=== PATIENT | male | born 1965 | race Caucasian/White ===

== ENCOUNTER 2019-08-11 14:02 | Emergency (ER) | payer OTHER ==
[~2019-08-11] VITALS: Ht 188 cm; Wt 109.8 kg
[2019-08-11] MEDS ORDERED: FENOFIBRATE145 MG PO (14:16)
[2019-08-11] MEDS ORDERED: LOVAZA1 GM PO (14:16)
[2019-08-11] MEDS ORDERED: ROSUVASTATIN CAL5 MG PO (14:17)
== END 2019-08-11 16:33 | disposition home or self-care (01) ==
LOC: ED 14:02
DX: R73.9 Hyperglycemia, unspecified (principal); Z79.899 Other long term (current) drug therapy
CPT/HCPCS: 80053; 81001; 85025; 96360; 99284-25; J7030

== ENCOUNTER 2020-07-05 22:13 | Inpatient (IN) | payer OTHER ==
[~2020-07-05] VITALS: Ht 188 cm; Wt 104.9 kg
[~2020-07-05 22:13] MED LIST: FENOFIBRATE145 MG PO; LOVAZA1 GM PO; ROSUVASTATIN CAL5 MG PO
[2020-07-05] MEDS ORDERED: VARDENAFIL HCL10 M1 PO (22:33)
[2020-07-05] MEDS ORDERED: METFORMIN HCL500 M1 PO (22:33)
[2020-07-06] MEDS ORDERED: ROSUVASTATIN CA10 MG PO (08:37)
[2020-07-06] MEDS ORDERED: VITAMIN D350 MC3 PO (18:01)
[2020-07-06] MEDS ORDERED: ADULT ASPIRIN R81 MG PO (18:01)
[2020-07-10] MEDS ORDERED: KEFLEX500 MG PO (09:29)
[2020-07-10] MEDS ORDERED: DEXAMETHASONE4 MG PO (09:32)
== END 2020-07-10 10:20 | disposition home or self-care (01) | DRG 177 ==
LOC: ED 22:13 → CCU 22:16
PROVIDERS: ADMIT Internal Medicine; ATTEND Internal Medicine
PROC: XW033E5 Introduction of Remdesivir Anti-infective into Peripheral Vein, Percutaneous Approach, New Technology Group 5 (ICD-10-PCS; principal; 2020-07-06)
PROC: XW033E5 Introduction of Remdesivir Anti-infective into Peripheral Vein, Percutaneous Approach, New Technology Group 5 (ICD-10-PCS; 2020-07-07)
PROC: XW033E5 Introduction of Remdesivir Anti-infective into Peripheral Vein, Percutaneous Approach, New Technology Group 5 (ICD-10-PCS; 2020-07-08)
PROC: XW033E5 Introduction of Remdesivir Anti-infective into Peripheral Vein, Percutaneous Approach, New Technology Group 5 (ICD-10-PCS; 2020-07-09)
PROC: XW033E5 Introduction of Remdesivir Anti-infective into Peripheral Vein, Percutaneous Approach, New Technology Group 5 (ICD-10-PCS; 2020-07-10)
DX: U07.1 COVID-19 (principal); J12.89 Other viral pneumonia; R78.81 Bacteremia; B96.89 Other specified bacterial agents as the cause of diseases classified elsewhere; E78.5 Hyperlipidemia, unspecified; E11.9 Type 2 diabetes mellitus without complications; Z79.899 Other long term (current) drug therapy; Z79.84 Long term (current) use of oral hypoglycemic drugs
CPT/HCPCS: 71045; 80053; 81001; 82803; 83605; 85025; 85610; 85730; 87040; 87077; 87184; 87186; 94667; 94668; 96374; 99285-25; G0378; J0696; J1100; J1650; J1815; J7030; J7050; J7121; J8540

== ENCOUNTER 2022-03-16 08:12 | Day surgery (SDC) | payer OTHER ==
[~2022-03-16] VITALS: Ht 188 cm; Wt 105.0 kg
[~2022-03-16 08:12] MED LIST changes: +ADULT ASPIRIN R81 MG PO; +DEXAMETHASONE4 MG PO; +GLIPIZIDE ER5 MG PO; +KEFLEX500 MG PO; +METFORMIN HCL500 M1 PO; +NIACIN50 MG PO; +ROSUVASTATIN CA10 MG PO; +TRICOR48 MG NG; +VARDENAFIL HCL10 M1 PO; +VIAGRA100 MG PO; +VITAMIN D350 MC3 PO; +ZITHROMAX250 MG PO
[2022-03-16] MEDS ORDERED: LISINOPRIL-HCT1 EACH PO (08:33)
[2022-03-16] MEDS ORDERED: RYBELSUS3 MG PO (08:34)
--- NOTE | 2022-03-16 11:53 | NUR ---
03/16/22 1153 Ruthy Mckeon 1144 PATIENT ARRIVES TO PACU SLEEPING. AWAKENS WITH VERBAL STIMULI. RESP EVEN AND UNLABORED, NC AT 2 LITERS. PATIENT HAS FREQUENT PERIODS OF APNEA AND NEEDS FREQUENT REMINDERS TO DEEP BREATHE. PATIENT DOES FOLLOW COMMANDS. PATIENT DENIES PAIN OR NAUSEA. PATIENT SLEEPING WHEN NOT STIMULATED.
--- NOTE | 2022-03-17 06:28 | OR ---
[facility] [address] [place], [place] [address] Signed DATE OF OPERATION: 03/16/2022 SURGEON: Lynsey Selby MD PREOPERATIVE DIAGNOSIS: Screening. POSTOPERATIVE DIAGNOSES: 1. A 5 mm polyp at 32 cm. 2. A 3 mm polyp at distal right colon. 3. A 5 mm polyp at 42 cm. 4. Minimal internal hemorrhoids. 5. Indurated prostate. PROCEDURE: Colonoscopy with hot biopsy. ESTIMATED BLOOD LOSS: None. INDICATIONS: Addison is a 56-year-old diabetic gentleman, asked to see me for his initial screening colonoscopy. He has no lower GI complaints. He said with the metformin, he does get some diarrhea. No family history of colon cancer or polyps. I have helped his with her rectal cancer, consequently Addison and his were very familiar with colonoscopy and our bowel prep. He had developed COVID back in 2020 and spend about a week in our hospital. He now gets dyspnea on exertion. He said he can walk 3 or 5 miles on the treadmill, but he has to push the lawnmower, it really takes the energy out of him. He actually spent time with [facility]. He had a negative stress test about a month ago. We could see had a bundle branch block today on his rhythm strip, but he had that on the previous rhythm strip from several years ago. He also had pulmonary function testing to his knowledge, it was fine. His thinks he might have sleep apnea, but he has never been tested. He also told me there was a 3 cm nodule on his thyroid, for which he is following along with his senior pastor and awaiting a biopsy. However, the thyroid nodule does not affect his breathing or swallowing. In the office, I gave him a pamphlet on colonoscopy. He understands that as well. There is risk including, but not limited to gas bloating, crampy abdominal pain, bleeding, perforation requiring surgery, and missed diagnosis. We also reviewed the need for IV conscious sedation. He had expressed understanding and wished to proceed. Electronically Signed By: LYNSEY SELBY MD 03/17/22 0628 PATIENT NAME: ADDISON ROWE OPERATIVE REPORT DATE OF : 65 REPORT #: [id number] PHYSICIAN: LYNSEY SELBY MD PCP: LETITIA JOSEPH PA-C REPORT IS CONFIDENTIAL AND NOT TO BE RELEASED WITHOUT AUTHORIZATION [facility] [address] [place] [address] Signed DESCRIPTION OF PROCEDURE: Addison was taken into our endoscopy suite and placed in the left lateral decubitus position. He was given IV sedation with 6 mg of Versed and 150 mcg of fentanyl with the help of our nurse. He was awake several times during the procedure, but seemed to be comfortable overall. A digital rectal exam was performed and he has good sphincter tone. His prostate is a bit indurated and enlarged. The scope was inserted and advanced under direct visualization up to the cecum itself. His prep was quite good. We could easily see the appendiceal orifice and ileocecal valve. The scope was then slowly withdrawn. We took several pictures throughout for photodocumentation. The three polyps mentioned above were easily removed with the help of hot biopsy forceps. There was no diverticulosis. The rectum was unremarkable. Upon retroflexion of scope, we could see minimal internal hemorrhoid tissue. After this, the gas was suctioned out and the colonoscope removed. Overall, Addison tolerated the procedure quite well. RECOMMENDATIONS: I will see Addison back in my office in 7 to 14 days to review his results. Lynsey Selby MD ALB/MODL /[id number] cc: Patient Chart MD Letitia Loera PA-C Copies: LYNSEY SELBY MD, CHLOE K PA-C ~ Electronically Signed By: LYNSEY SELBY MD 03/17/22 0628 PATIENT NAME: ADDISON ROWE OPERATIVE REPORT DATE OF : 65 REPORT #: [id number] PHYSICIAN: LYNSEY SELBY MD PCP: LETITIA JOSEPH PA-C REPORT IS CONFIDENTIAL AND NOT TO BE RELEASED WITHOUT AUTHORIZATION
--- NOTE | 2022-03-21 18:59 | PATH ---
[facility] [address] [place], [place] [address] Signed SPECIMEN(S): A POLYP AT 32 CM SPECIMEN(S): B DISTAL RIGHT COLON POLYP SPECIMEN(S): C POLYP AT 42 CM SPECIMEN SOURCE: A. POLYP AT 32 CM B. DISTAL RIGHT COLON POLYP C. POLYP AT 42 CM CLINICAL HISTORY: Screening colonoscopy, no family history of colon cancer. FINAL PATHOLOGIC DIAGNOSIS: A. Colon, 32 cm, polypectomy: - Multiple fragments of tubular adenoma. - There is no evidence of high-grade dysplasia or malignancy. B. Colon, distal right, polypectomy: - Hyperplastic polyp. - There is no evidence of dysplasia or malignancy. C. Colon, 42 cm, polypectomy: - Tubular adenoma. - There is no evidence of high-grade dysplasia or malignancy. TWK:caw:C2NR MICROSCOPIC EXAMINATION: Histologic sections of all submitted blocks are examined by light microscopy. These findings, together with the gross examination, support the pathologic diagnosis. GROSS DESCRIPTION: Three specimens are received in three containers, labeled "GM." A. The specimen, labeled "GM, polyp at 32 cm," is received in formalin and consists of two schroeder soft tissue fragments that measure 0.3 cm in greatest dimension. The specimen is entirely submitted in cassette (A1). B. The specimen, labeled "GM, distal right colon polyp," is received in formalin and consists of one schroeder soft tissue fragment that measures 0.3 cm in greatest dimension. The specimen is entirely submitted in cassette (B1). C. The specimen, labeled "GM, polyp at 42 cm," is received in formalin and consists of one schroeder soft tissue fragment that measures 0.3 cm in greatest PATIENT NAME: LEANDER ROWE PATHOLOGY DATE OF : 65 REPORT #: [id number] PHYSICIAN: ARABELLA CUMMINGS PCP: KEITH JOSEPH PA-C REPORT IS CONFIDENTIAL AND NOT TO BE RELEASED WITHOUT AUTHORIZATION [facility] [address] [place], [place] [address] Signed dimension. The specimen is entirely submitted in cassette (C1). AT (under the direct supervision of a pathologist) The Gross Description was prepared using a voice recognition system. The report was reviewed for accuracy; however, sound-alike word errors, addition and/or deletions may occur. If there is any question about this report, please contact Client Services. PERFORMING LABORATORY: The technical component was performed by [facility] [address] [place] [address] (CLIA# [id number]). The professional interpretation [facility] by [facility], [facility], [facility] [address] [place] [id number] (CLIA#: [id number]). Diagnostician: Jose Luis Goode MD Pathologist Electronically Signed 03/21/2022 Copies: ~ PATIENT NAME: ROWE,LEANDER AMADOR PATHOLOGY DATE OF : 65 REPORT #: [id number] PHYSICIAN: ARABELLA CUMMINGS PCP: KEITH JOSEPH PA-C REPORT IS CONFIDENTIAL AND NOT TO BE RELEASED WITHOUT AUTHORIZATION
== END 2022-03-16 13:00 | disposition home or self-care (01) ==
LOC: OPS 08:12 → DS 08:14 → OPS 09:45
PROVIDERS: ATTEND Colon & Rectal Surgery
PROC: 0DBE8ZX Excision of Large Intestine, Via Natural or Artificial Opening Endoscopic, Diagnostic (ICD-10-PCS; 2022-03-16)
PROC: 0DBF8ZX Excision of Right Large Intestine, Via Natural or Artificial Opening Endoscopic, Diagnostic (ICD-10-PCS; principal; 2022-03-16 09:45)
DX: Z12.11 Encounter for screening for malignant neoplasm of colon (principal); D12.6 Benign neoplasm of colon, unspecified; E11.9 Type 2 diabetes mellitus without complications; K64.8 Other hemorrhoids; N42.89 Other specified disorders of prostate; Z86.16 Personal history of COVID-19
CPT/HCPCS: 99153; G0500; J2250; J3010; J7121

== ENCOUNTER 2022-04-20 08:30 | Observation (INO) | payer OTHER ==
[~2022-04-20] VITALS: Ht 182.9 cm; Wt 103.6 kg
[~2022-04-20 08:30] MED LIST changes: +LISINOPRIL-HCT1 EACH PO; +RYBELSUS3 MG PO
[2022-04-21] MEDS ORDERED: ACETAMINOPHEN500 MG PO (11:05)
--- NOTE | 2022-04-23 11:38 | OR ---
[facility] [address] [place], [place] [address] Signed DATE OF OPERATION: 04/20/2022 SURGEON: Iesha Melo MD PREOPERATIVE DIAGNOSIS: Left 3.7 cm thyroid mass, [facility] category 4. POSTOPERATIVE DIAGNOSIS: Follicular lesion. No evidence of capsular invasion. Final pathology pending. PROCEDURE: Left total thyroid lobectomy with isthmusectomy. ANESTHESIA: General endotracheal (Nae Pittman CRNA, and Iesha Phillip CRNA) INDICATIONS: This 56-year-old man is a patient of LetitiaNARAYAN Ford and referred with an ultrasound-guided biopsy performed in [place] of a 3.7 cm thyroid mass, considered [facility] category 4. He is referred for consideration of thyroid lobectomy, possible total thyroidectomy. He underwent the ultrasound-guided fine-needle aspiration biopsy in [place] on March 13, [address] Duran and evaluated by [facility], suspicious for follicular neoplasm, considered [facility] category 4. The patient has no associated symptoms or dysphagia, trouble breathing, and no family history of thyroid cancer or known exposure to radiation or radiation therapy. He is admitted at this time to undergo left thyroid lobectomy, possible total thyroidectomy depending on frozen pathology. The risks of bleeding, infection, need for return to the OR for completion thyroidectomy in the future pending final pathology. IN addition, the risks of bleeding,infection, recurrent or external laryngeal nerve injury, unintended parathyroid excision were all reviewed and understood by the patient and his . FINDINGS: The thyroid mass was very soft and not highly suspicious. Complete left thyroid lobectomy was undertaken without known complication. The recurrent laryngeal nerve was identified after excision and clearly was unharmed. PROCEDURE IN DETAIL: The patient was brought to the operating room and given a general endotracheal anesthetic. A shoulder roll was placed and mild neck extension secured. He had two dominant Electronically Signed By: IESHA MELO MD 04/23/22 1138 PATIENT NAME: LEANDER ROWE OPERATIVE REPORT DATE OF : 65 REPORT #: [id number] PHYSICIAN: IESHA MELO MD PCP: LETITIA LYNCH PA-C REPORT IS CONFIDENTIAL AND NOT TO BE RELEASED WITHOUT AUTHORIZATION [facility] [address] [place], [place] [address] Signed creases of his neck considered optimal for incision . Arms were placed at the side. A susan lounge position was maintained. The neck was then prepared with a chlorhexidine solution and draped sterilely. A natural skin crease was used for incision. Incision extended between the medial heads of the sternocleidomastoid muscle. Transection of the dermis was undertaken. Electrocautery used for hemostasis. The platysmal layer was divided with electrocautery and superior and inferior thyroid flaps elevated. Two Gelpi retractors were placed and the midline avascular plane identified; elevation of the strap muscles (sternohyoid) was undertaken. Using electrocautery, the midline avascular plane was incised superiorly and inferiorly. The sternohyoid and sternothyroid muscles were freed with sharp dissection from over the left thyroid lobe. The left thyroid mass itself was posteriorly located. Access initially was not straight forward particularly. Loose areolar tissue to the lateral aspect was divided with sharp and electrocuatery dissection as needed. The mass itself was very posterior in the thyroid. Superior polar vessels were individually ligated with 4-0 silk ties and divided. Similar dissection was undertaken inferiorly. Small vessels in the midportion were similarly isolated and divided and secured with 4-0 silk ties. Small clips were applied in each region as necessary. With progressive mobilization, the left thyroid lobe was rotated towards the midline. The posterior capsular elements were identified and the capsule incised with electrocautery and bluntly . The posterior elements including parathyroid glands were left in situ of course. Ultimately with sequential blunt dissection minimal electrocautery was able to be applied to the ligament of Yancey to transect the thyroid tissue near the anterior aspect of the trachea. The avascular plane was encountered allowing for complete rotation of the thyroid lobe and isthmus to the right. Hemostats were applied to the isthmus at the junction of the right thyroid lobe. The parenchyma divided. Those remnant elements of the isthmus were secured with 3-0 silk suture. Irrigation was undertaken. The recurrent laryngeal nerve was identified posterior to the area of parenchymal transection and well out of harm's way. Aerosolized fibrin glue (Tisseel) was applied to the ligament of Yancey and surrounding soft tissue, though there was not much bleeding to begin with. By this point, the thyroid lobe was returned from the pathologist examination showing a "follicular lesion" without sign of capsular invasion. Given this soft substance of the mass, I think it is highly unlikely there was any malignancy. Once hemostasis was assured the midline strap muscles were reapproximated with interrupted 2-0 Vicryl as was the platysmal layer. The skin was then closed in running subcuticular of 4-0 Vicryl. Steri-Strips were applied Electronically Signed By: IESHA MELO MD 04/23/22 1138 PATIENT NAME: LEANDER ROWE OPERATIVE REPORT DATE OF : 65 REPORT #: [id number] PHYSICIAN: IESHA MELO MD PCP: LETITIA LYNCH PA-C REPORT IS CONFIDENTIAL AND NOT TO BE RELEASED WITHOUT AUTHORIZATION [address] [place] [address] Signed as was an Acticoat dressing. The patient was ultimately extubated and transferred to recovery room in good condition having suffered no known complications. Sponge, needle, and counts were reported as correct x3. Blood loss was less than 10 mL in aggregate. MD SHADE Forrest/RADHIKA /[id number] cc: Dr. Roger Lynch PA-C Copies: ~ Electronically Signed By: IESHA MELO MD 04/23/22 1138 PATIENT NAME: LEANDER ROWE OPERATIVE REPORT DATE OF : 65 REPORT #: [id number] PHYSICIAN: IESHA MELO MD PCP: LETITIA LYNCH PA-C REPORT IS CONFIDENTIAL AND NOT TO BE RELEASED WITHOUT AUTHORIZATION
--- NOTE | 2022-04-26 18:29 | PATH ---
[facility] [address] [place], [place] [address] Signed SPECIMEN(S): A LEFT THYROID LOBE WITH ISTHMUS SPECIMEN SOURCE: A. LEFT THYROID LOBE WITH ISTHMUS CLINICAL HISTORY: Left thyroid mass. FROZEN SECTION DIAGNOSIS: A. Left thyroid lobe with isthmus:Follicular lesion, deferred to permanents. (Dr. Montenegro, 1352 hours, 04-20-22) FB (under the direct supervision of a pathologist) The Gross Description was prepared using a voice recognition system. The report was reviewed for accuracy; however, sound-alike word errors, addition and/or deletions may occur. If there is any question about this report, please contact Client Services. FINAL PATHOLOGIC DIAGNOSIS: Thyroid lobe, left, lobectomy plus isthmus: - Follicular adenoma. TWK:sjc:C2NR MICROSCOPIC EXAMINATION: Histologic sections of all submitted blocks are examined by light microscopy. These findings, together with the gross examination, support the pathologic diagnosis. GROSS DESCRIPTION: The specimen, labeled "Addison Moreno," and designated on the requisition "left thyroid lobe with isthmus," is received fresh for frozen section diagnosis and consists of 12 g unoriented thyroid lobe that is 6.0 x 3.2 x 1.4 cm. The external surface is red and smooth with multiple metallic clips and black suture material. No parathyroid or lymph node tissue is grossly identified. The specimen is inked black. A portion of the roughening is present measuring 2.4 x 1.7 cm. The surface is inked green. Serially sectioning reveals a 3.2 x 2.7 x 1.8 cm pink-red variegated and well circumscribed nodule. The nodule abuts the external surface. A portion of the specimen is submitted for frozen section resubmitted as received in cassette (A1). The uninvolved thyroid is deep red and rubbery. The specimen is entirely different histologic examination in 10 cassettes. PATIENT NAME: ADDISON MORENO PATHOLOGY DATE OF : 65 REPORT #: [id number] PHYSICIAN: ARABELLA PATHOLOGY PCP: KEITH JOSEPH PA-C REPORT IS CONFIDENTIAL AND NOT TO BE RELEASED WITHOUT AUTHORIZATION [address] [address] Signed Cassette summary: (A1) nodule, frozen section (A2-A8) remainder of nodule (A9-A10) uninvolved thyroid. PERFORMING LABORATORY: Frozen section performed at [facility], [address] [place] [address] (CLIA# [id number]). The technical component was performed by [facility], [address] [place] [address] (CLIA# [id number]). The professional interpretation was performed by [facility], [facility], [address] [place] [address] (CLIA#: [id number]). Diagnostician: Jose Luis Goode MD Pathologist Electronically Signed 04/26/2022 Copies: ~ PATIENT NAME: ADDISON MORENO PATHOLOGY DATE OF : 65 REPORT #: [id number] PHYSICIAN: ARABELLA PATHOLOGY PCP: KEITH JOSEPH PA-C REPORT IS CONFIDENTIAL AND NOT TO BE RELEASED WITHOUT AUTHORIZATION
== END 2022-04-21 11:30 | disposition home or self-care (01) ==
LOC: DS 08:30 → MSO 14:31 → MS 14:31 → DS 14:31 → MS 15:00 → DS 15:00 → MS 04-21 11:30 → DS 04-21 11:30
PROVIDERS: ADMIT Surgery; ATTEND Surgery
PROC: 0GTG0ZZ Resection of Left Thyroid Gland Lobe, Open Approach (ICD-10-PCS; 2022-04-20)
PROC: 0GTJ0ZZ Resection of Thyroid Gland Isthmus, Open Approach (ICD-10-PCS; principal; 2022-04-20 08:30)
DX: D34 Benign neoplasm of thyroid gland (principal); I10 Essential (primary) hypertension; E11.9 Type 2 diabetes mellitus without complications; E78.5 Hyperlipidemia, unspecified; Z86.16 Personal history of COVID-19; Z79.84 Long term (current) use of oral hypoglycemic drugs
CPT/HCPCS: 00320; 51798; 96375; 96376; A9270; G0378; J0330; J0690; J1100; J1170; J1885; J2250; J2310; J2405; J2704; J3010; J7121

== ENCOUNTER 2023-09-02 15:46 | Emergency (ER) | payer OTHER ==
[~2023-09-02] VITALS: Ht 182.9 cm; Wt 104.2 kg
[~2023-09-02 15:46] MED LIST changes: +ACETAMINOPHEN500 MG PO
[2023-09-02] MEDS ORDERED: VARDENAFIL HCL10 M1 PO (16:18)
[2023-09-02] MEDS ORDERED: METFORMIN HCL500 M1 PO (16:19)
[2023-09-02] MEDS ORDERED: LEVOTHYROXINE75 MCG PO (16:19)
[2023-09-02 17:35] LABS: BASOPHILS 0.6 % (0-2); EOSINOPHILS 3.6 % (0-6); HEMATOCRIT 44.5 % (35.0-50.0); LYMPHOCYTES 35.6 % (24-44); MCH 32.8 (27-36); MCV 90.9 fl (81-99); NEUTROPHILS 53.2 % (39-80); PLATELET COUNT 208 K/uL (140-440); RDW 13.1 (10.5-15.0)
[2023-09-02 17:43] LABS: ANION GAP 13.5 (7-21); BUN/CREATININE RATIO 12.69 (6.0-28.6); CALCIUM 8.7 mg/dL (8.5-10.1); CREATININE, SERUM 1.26 mg/dL (0.70-1.30); POTASSIUM 4.5 mmol/L (3.5-5.1)
[2023-09-02 18:34] VITALS: BP 132/84
== END 2023-09-02 18:35 | disposition home or self-care (01) ==
LOC: ED 15:46
PROVIDERS: Emergency Medicine
DX: E11.9 Type 2 diabetes mellitus without complications (principal); I10 Essential (primary) hypertension; Z79.899 Other long term (current) drug therapy; Z79.84 Long term (current) use of oral hypoglycemic drugs
CPT/HCPCS: 36415; 80048; 85025

== ENCOUNTER 2025-07-09 18:48 | Emergency (ER) | payer OTHER ==
[~2025-07-09] VITALS: Ht 182.9 cm; Wt 105.0 kg
[~2025-07-09 18:48] MED LIST changes: +LEVOTHYROXINE75 MCG PO
[2025-07-09] MEDS ORDERED: DIPHTH,PERTUSS(ACELL),TET VAC 0.5 ML SYRINGE IM ONE (20:15)
[2025-07-09 20:31] VITALS: BP 146/98
== END 2025-07-09 20:33 | disposition home or self-care (01) ==
LOC: ED 18:48
DX: T24.512A Corrosion of first degree of left thigh, initial encounter (principal); T24.511A Corrosion of first degree of right thigh, initial encounter; E11.9 Type 2 diabetes mellitus without complications; Z77.098 Contact with and (suspected) exposure to other hazardous, chiefly nonmedicinal, chemicals; Y99.0 Civilian activity done for income or pay
CPT/HCPCS: 90471; 90715; 99283-25